=== PATIENT | male | born 1975 | race Caucasian/White ===

== ENCOUNTER 2021-05-23 14:50 | Emergency (ER) | payer BC ==
[2021-05-23 14:55] VITALS: BP 131/81; PULSE 79; TEMP 98.1; BMI 26.8
== END 2021-05-23 16:50 | disposition home or self-care (01) ==
LOC: FER 14:50
DX: S62.102A Fracture of unspecified carpal bone, left wrist, initial encounter for closed fracture (principal); W21.02XA Struck by soccer ball, initial encounter; Y92.9 Unspecified place or not applicable
CPT/HCPCS: 73110-TC-LT-FY; 99284-25